=== PATIENT | female | born 1960 | race Caucasian/White ===

== ENCOUNTER 2017-10-18 21:41 | Emergency (ER) | payer SELFPAY ==
[~2017-10-18] VITALS: Ht 160 cm; Wt 84.4 kg
[2017-10-18 22:48] LABS: BASOPHILS # (AUTO) 0.1 (0.0-0.1); BASOPHILS % 0.5 % (0.0-1.0); EOSINOPHILS # (AUTO) 0.1 (0.0-0.4); EOSINOPHILS % 0.9 % (0.0-6.0); HEMATOCRIT 40.3 % (34.2-44.1); HEMOGLOBIN 13.2 g/dL (12.0-16.0); LYMPHOCYTES # (AUTO) 2.4 (1.0-3.2); LYMPHOCYTES % 17.7 % (18.0-39.1); MEAN CORPUSCULAR HEMOGLOBIN 30.1 pg (28-32); MEAN CORPUSCULAR HGB CONC 32.8 g/dL (31-35); MEAN CORPUSCULAR VOLUME 91.8 fL (81-99); MONOCYTES # (AUTO) 0.6 (0.2-0.8); MONOCYTES % 4.3 % (4.4-11.3); NEUTROPHILS # (AUTO) 10.2 (2.1-6.9); NEUTROPHILS % 76.2 % (38.7-80.0); PLATELET COUNT 260 x10e3/uL (140-360); RED BLOOD COUNT 4.39 x10e6/uL (3.6-5.1); RED CELL DISTRIBUTION WIDTH 13.1 % (11.7-14.4)
[2017-10-18 22:52] LABS: BILIRUBIN,URINE NEGATIVE (NEGATIVE); CLARITY,URINE CLEAR (CLEAR); COLOR,URINE YELLOW (YELLOW); KETONES,URINE NEGATIVE (NEGATIVE); LEUKOCYTE ESTERASE ,URINE NEGATIVE (NEGATIVE); NITRITE,URINE NEGATIVE (NEGATIVE); PROTEIN,URINE DIPSTICK NEGATIVE (NEGATIVE); URINE UROBILINOGEN 0.2 mg/dL (0.2 - 1)
[2017-10-18 23:10] LABS: BACTERIA,URINE FEW /HPF; EPITHELIAL CELLS,URINE FEW /LPF; WBC,URINE (MAN) 0-5 /HPF (0-5)
[2017-10-18 23:11] LABS: ALANINE AMINOTRANSFERASE 10 IU/L (0-55); ALBUMIN 3.7 g/dL (3.5-5.0); ALBUMIN/GLOBULIN RATIO 0.9 (0.8-2.0); ALKALINE PHOSPHATASE 81 IU/L (40-150); BLOOD UREA NITROGEN 10 mg/dL (7-26); BUN/CREATININE RATIO 12 (6-25); CALCIUM 9.4 mg/dL (8.4-10.2); CARBON DIOXIDE 25 mmol/L (22-29); CHLORIDE 101 mmol/L (98-107); CREATININE, SERUM 0.82 mg/dL (0.57-1.11); EST GLOMERULAR FILTRATION RATE > 60 ML/MIN (60-); GLUCOSE 152 mg/dL (74-118); SODIUM 135 mmol/L (136-145)
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
[2017-10-19 00:42] VITALS: BP 133/65
[2017-10-19] MEDS ORDERED: IOPAMIDOL 370 MG/ML 200 ML INFUS..BTL INJ ONE (02:51)
[2017-10-19] MEDS ORDERED: SODIUM CHLORIDE 0.9% 50ML 50 ML ONE (02:51)
== END 2017-10-19 01:00 | disposition home or self-care (01) ==
LOC: ER 21:41
DX: S00.83XA Contusion of other part of head, initial encounter (principal); S30.1XXA Contusion of abdominal wall, initial encounter; S60.212A Contusion of left wrist, initial encounter; S60.211A Contusion of right wrist, initial encounter; S60.222A Contusion of left hand, initial encounter; S60.221A Contusion of right hand, initial encounter; S70.12XA Contusion of left thigh, initial encounter; S70.11XA Contusion of right thigh, initial encounter; S60.812A Abrasion of left wrist, initial encounter; S60.811A Abrasion of right wrist, initial encounter; S60.512A Abrasion of left hand, initial encounter; S60.511A Abrasion of right hand, initial encounter; V43.52XA Car driver injured in collision with other type car in traffic accident, initial encounter; Y92.488 Other paved roadways as the place of occurrence of the external cause; G89.29 Other chronic pain; Z85.41 Personal history of malignant neoplasm of cervix uteri
CPT/HCPCS: 36415; 70450; 71010; 72125; 73110 ×2; 73130 ×2; 74177; 80053; 81001; 85025; 93005; 99284; Q9967

== ENCOUNTER 2024-12-20 17:41 | Inpatient (IN) | payer MEDICAID, OTHER ==
[~2024-12-20] VITALS: Ht 157.5 cm; Wt 70.3 kg
[2024-12-20] MEDS: DILTIAZEM HCL 5 MG/ML 5 ML VIAL IV STA ×2 (18:46→19:33)
[2024-12-20 18:54] VITALS: TEMP 98.6
[2024-12-20] MEDS ORDERED: AMIODARONE HCL 100 ML IV ONE (18:58)
[2024-12-20 19:03] LABS: BASOPHILS % 0.2 % (0.0-1.0); EOSINOPHILS % 0.2 % (0.0-6.0); HEMATOCRIT 37.6 % (34.2-44.1); LYMPHOCYTES # (AUTO) 0.4 (1.0-3.2); LYMPHOCYTES % 3.5 % (18.0-39.1); MEAN CORPUSCULAR HEMOGLOBIN 30.5 pg (28-32); MEAN CORPUSCULAR HGB CONC 31.9 g/dL (31-35); MEAN CORPUSCULAR VOLUME 95.7 fL (81-99); MONOCYTES # (AUTO) 0.2 (0.2-0.8); MONOCYTES % 1.7 % (4.4-11.3); NEUTROPHILS # (AUTO) 11.7 (2.1-6.9); PLATELET COUNT 340 x10e3/uL (140-360); RED BLOOD COUNT 3.93 x10e6/uL (3.6-5.1); WHITE BLOOD COUNT 12.45 x10e3/uL (4.8-10.8)
[2024-12-20 19:23] LABS: ALBUMIN 2.9 g/dL (3.5-5.0); ALBUMIN/GLOBULIN RATIO 0.7 (0.8-2.0); ANION GAP 17.4 mmol/L (8-16); BILIRUBIN,TOTAL 0.5 mg/dL (0.2-1.2); CREATININE, SERUM 0.71 mg/dL (0.57-1.11); POTASSIUM 4.4 mmol/L (3.5-5.1); TOTAL PROTEIN 7.1 g/dL (6.5-8.1)
[2024-12-20 19:28] LABS: CORONAVIRUS COVID-19 AG NEGATIVE (NEGATIVE); INFLUENZA A AG NEGATIVE (NEGATIVE); INFLUENZA B AG NEGATIVE (NEGATIVE)
[2024-12-20] MEDS: AMIODARONE HCL 150 MG/100 ML BAG IV ONE (19:28)
[2024-12-20] MEDS: IBUPROFEN 400 MG TAB PO ONE (19:28)
[2024-12-20 19:30] LABS: B-TYPE NATRIURETIC PEPTIDE2 673.9 pg/mL (0-100)
[2024-12-20] MEDS ORDERED: IOPAMIDOL 370 MG/ML 100 ML INFUS..BTL INJ ONE (19:33)
[2024-12-20] MEDS: AMIODARONE 900MG 500 ML IV SCH (19:47)
[2024-12-20 20:30] VITALS: PULSE 152; RESP 18; O2SAT 94
[2024-12-20] MEDS: APIXABAN 5 MG TABLET PO SCH (21:37)
[2024-12-20] MEDS: DILTIAZEM HCL 60 MG TAB PO SCH (21:37)
[2024-12-20] MEDS: GABAPENTIN 300 MG CAP PO SCH (21:37)
[2024-12-20] MEDS: FUROSEMIDE INJ 10 MG/ML 4 ML VIAL IV ONE (21:38)
[2024-12-20 22:30] LABS: BILIRUBIN,URINE NEGATIVE (NEGATIVE); CLARITY,URINE CLEAR (CLEAR); COLOR,URINE YELLOW (YELLOW); GLUCOSE, URINE NEGATIVE (NEGATIVE); KETONES,URINE NEGATIVE (NEGATIVE); LEUKOCYTE ESTERASE ,URINE TRACE (NEGATIVE); NITRITE,URINE NEGATIVE (NEGATIVE); PH,URINE 5.5 (5 - 7); PROTEIN,URINE DIPSTICK NEGATIVE (NEGATIVE); URINE UROBILINOGEN 0.2 mg/dL (0.2 - 1)
[2024-12-20] MEDS ORDERED: SODIUM CHLORIDE FLUSH 10 ML SYR INJ PRN (22:30)
[2024-12-20 22:48] LABS: BACTERIA,URINE MANY /HPF; EPITHELIAL CELLS,URINE MODERATE /LPF; RBC,URINE 0-5 /HPF (0-5)
[2024-12-20 23:00] VITALS: PULSE 152; RESP 21
[2024-12-20 23:56] VITALS: BP 115/81; PULSE 153; RESP 20; TEMP 98.3; O2SAT 92
[2024-12-21] VITALS (39 sets, daily range): BP systolic 103–135; BP diastolic 66–95; PULSE 42–152; RESP 13–34; TEMP 97.8–98.6; O2SAT 89–99
[2024-12-21] MEDS: Morphine 2mg Syringe 2 MG/ML SYR IV ONE (00:35)
[2024-12-21] MEDS: METHYLPREDNISOLONE SOD SUCC 40 MG/ML VIAL 1ML IV SCH (00:36)
[2024-12-21] MEDS: ONDANSETRON HCL INJ 2MG/ML 2ML 2 MG/ML VIAL IV STA (00:36)
[2024-12-21] MEDS: LEVALBUTEROL HCL SOLN NEBU 0.63 MG/3 ML NEB INH SCH (01:36)
[2024-12-21 07:58] LABS: TROPONIN I 0.003 ng/mL (0-0.300)
[2024-12-21] MEDS: FUROSEMIDE INJ 10 MG/ML 4 ML VIAL IV SCH (08:11)
[2024-12-21] MEDS: METOPROLOL TARTRATE 25 MG TAB PO SCH (10:19)
[2024-12-21] MEDS: HYDROCODONE/APAP 10MG-325MG TAB PO PRN (10:55)
[2024-12-21] MEDS: IBUPROFEN 400 MG TAB PO ONE (15:37)
[2024-12-21] MEDS: AMIODARONE 900MG 500 ML IV SCH (16:26)
[2024-12-21] MEDS ORDERED: IBUPROFEN600 MG PO (17:23)
[2024-12-21] MEDS ORDERED: HYDROCODON-ACE1 EAC9 (17:23)
[2024-12-21] MEDS ORDERED: ALBUTEROL1.25 MG/3 NEB (17:23)
[2024-12-21] MEDS ORDERED: NEURONTIN300 MG PO (17:23)
[2024-12-21] MEDS ORDERED: BREZTRI AEROS10.7 GM (17:23)
[2024-12-21] MEDS ORDERED: TIZANIDINE HCL4 MG PO (17:23)
[2024-12-22] VITALS (28 sets, daily range): BP systolic 101–141; BP diastolic 66–103; PULSE 50–138; RESP 12–23; TEMP 98.2–98.6; O2SAT 91–100
[2024-12-22 06:18] LABS: BASOPHILS % 0.2 % (0.0-1.0); EOSINOPHILS % 0.2 % (0.0-6.0); HEMATOCRIT 39.4 % (34.2-44.1); HEMOGLOBIN 12.7 g/dL (12.0-16.0); LYMPHOCYTES # (AUTO) 1.2 (1.0-3.2); LYMPHOCYTES % 10.6 % (18.0-39.1); MEAN CORPUSCULAR HEMOGLOBIN 31.3 pg (28-32); MEAN CORPUSCULAR HGB CONC 32.2 g/dL (31-35); MONOCYTES # (AUTO) 0.6 (0.2-0.8); MONOCYTES % 5.7 % (4.4-11.3); NEUTROPHILS # (AUTO) 9.3 (2.1-6.9); NEUTROPHILS % 82.7 % (38.7-80.0); PLATELET COUNT 328 x10e3/uL (140-360); RED BLOOD COUNT 4.06 x10e6/uL (3.6-5.1); RED CELL DISTRIBUTION WIDTH 13.2 % (11.7-14.4); WHITE BLOOD COUNT 11.27 x10e3/uL (4.8-10.8)
[2024-12-22 06:52] LABS: ALBUMIN 2.7 g/dL (3.5-5.0); ALBUMIN/GLOBULIN RATIO 0.7 (0.8-2.0); ANION GAP 15.4 mmol/L (8-16); BILIRUBIN,TOTAL 0.3 mg/dL (0.2-1.2); CALCIUM 8.8 mg/dL (8.4-10.2); CREATININE, SERUM 1.15 mg/dL (0.57-1.11); POTASSIUM 4.4 mmol/L (3.5-5.1); TOTAL PROTEIN 6.6 g/dL (6.5-8.1)
[2024-12-22 07:20] LABS: PHOSPHORUS 3.9 MG/DL (2.3-4.7)
[2024-12-22 07:31] LABS: TROPONIN I 0.021 ng/mL (0-0.300)
[2024-12-22] MEDS: LEVALBUTEROL HCL SOLN NEBU 0.63 MG/3 ML NEB INH PRN (08:10)
[2024-12-22] MEDS: FUROSEMIDE INJ 10 MG/ML 4 ML VIAL IV SCH (08:14)
[2024-12-22] MEDS: HYDROCODONE/APAP 10MG-325MG TAB PO PRN (10:10)
[2024-12-22] MEDS ORDERED: GUAIFENESIN/CODEINE 5 ML LIQD PO PRN (16:00)
[2024-12-22] MEDS ORDERED: BENZONATATE 100 MG CAP PO PRN (16:15)
[2024-12-22] MEDS: GUAIFENESIN/CODEINE 5 ML LIQD PO PRN (16:21)
[2024-12-22] MEDS: BUDESONIDE/FORMOTEROL 160/4.5MCG INHALER INH SCH (19:00)
[2024-12-22] MEDS: METHYLPREDNISOLONE SOD SUCC 40 MG/ML VIAL 1ML IV SCH (20:18)
[2024-12-23] VITALS (25 sets, daily range): BP systolic 55–148; BP diastolic 36–114; PULSE 44–137; RESP 11–24; TEMP 98.1–98.9; O2SAT 91–100
[2024-12-23 06:10] LABS: BASOPHILS % 0.1 % (0.0-1.0); EOSINOPHILS # (AUTO) 0.1 (0.0-0.4); EOSINOPHILS % 1.1 % (0.0-6.0); HEMATOCRIT 40.2 % (34.2-44.1); HEMOGLOBIN 12.4 g/dL (12.0-16.0); LYMPHOCYTES # (AUTO) 0.9 (1.0-3.2); LYMPHOCYTES % 8.9 % (18.0-39.1); MEAN CORPUSCULAR HEMOGLOBIN 30.5 pg (28-32); MEAN CORPUSCULAR HGB CONC 30.8 g/dL (31-35); MONOCYTES # (AUTO) 0.7 (0.2-0.8); MONOCYTES % 6.9 % (4.4-11.3); NEUTROPHILS # (AUTO) 8.3 (2.1-6.9); NEUTROPHILS % 82.3 % (38.7-80.0); PLATELET COUNT 356 x10e3/uL (140-360); RED BLOOD COUNT 4.06 x10e6/uL (3.6-5.1); RED CELL DISTRIBUTION WIDTH 13.1 % (11.7-14.4); WHITE BLOOD COUNT 10.04 x10e3/uL (4.8-10.8)
[2024-12-23 06:34] LABS: ALBUMIN/GLOBULIN RATIO 0.9 (0.8-2.0); ANION GAP 16.4 mmol/L (8-16); BILIRUBIN,TOTAL 0.4 mg/dL (0.2-1.2); CALCIUM 8.9 mg/dL (8.4-10.2); CREATININE, SERUM 1.03 mg/dL (0.57-1.11); POTASSIUM 4.4 mmol/L (3.5-5.1); TOTAL PROTEIN 6.5 g/dL (6.5-8.1)
[2024-12-23] MEDS: FAMOTIDINE 20 MG TAB PO SCH (17:29)
[2024-12-24] VITALS (40 sets, daily range): BP systolic 108–144; BP diastolic 76–100; PULSE 35–127; RESP 10–29; TEMP 96.4–98.1; O2SAT 57–100
[2024-12-24 07:08] LABS: ALBUMIN 2.9 g/dL (3.5-5.0); ANION GAP 15.3 mmol/L (8-16); BILIRUBIN,TOTAL 0.6 mg/dL (0.2-1.2); CALCIUM 8.8 mg/dL (8.4-10.2); CREATININE, SERUM 0.85 mg/dL (0.57-1.11); POTASSIUM 4.3 mmol/L (3.5-5.1); TOTAL PROTEIN 5.9 g/dL (6.5-8.1)
[2024-12-24 08:04] LABS: BASOPHILS % 0.1 % (0.0-1.0); EOSINOPHILS % 0.5 % (0.0-6.0); HEMATOCRIT 38.2 % (34.2-44.1); HEMOGLOBIN 12.5 g/dL (12.0-16.0); LYMPHOCYTES # (AUTO) 0.7 (1.0-3.2); LYMPHOCYTES % 9.2 % (18.0-39.1); MEAN CORPUSCULAR HEMOGLOBIN 31.3 pg (28-32); MEAN CORPUSCULAR HGB CONC 32.7 g/dL (31-35); MEAN CORPUSCULAR VOLUME 95.5 fL (81-99); MONOCYTES # (AUTO) 0.6 (0.2-0.8); MONOCYTES % 7.8 % (4.4-11.3); NEUTROPHILS # (AUTO) 6.6 (2.1-6.9); NEUTROPHILS % 81.7 % (38.7-80.0); PLATELET COUNT 336 x10e3/uL (140-360); RED CELL DISTRIBUTION WIDTH 12.8 % (11.7-14.4); WHITE BLOOD COUNT 8.06 x10e3/uL (4.8-10.8)
[2024-12-24] MEDS: METHYLPREDNISOLONE SOD SUCC 40 MG/ML VIAL 1ML IV SCH (08:10)
[2024-12-24] MEDS ORDERED: ZOLPIDEM TARTRATE 5 MG TAB PO PRN (08:15)
[2024-12-24] MEDS: HYDROCODONE/APAP 10MG-325MG TAB PO PRN (10:42)
[2024-12-24] MEDS ORDERED: LEVALBUTEROL 45 MCG IH PRN (12:30)
[2024-12-25] VITALS (25 sets, daily range): BP systolic 99–154; BP diastolic 70–94; PULSE 48–142; RESP 10–21; TEMP 97.6–98.4; O2SAT 71–100
[2024-12-25 07:01] LABS: BASOPHILS % 0.1 % (0.0-1.0); EOSINOPHILS % 0.1 % (0.0-6.0); HEMATOCRIT 43.4 % (34.2-44.1); HEMOGLOBIN 13.6 g/dL (12.0-16.0); LYMPHOCYTES % 7.3 % (18.0-39.1); MEAN CORPUSCULAR HEMOGLOBIN 30.8 pg (28-32); MEAN CORPUSCULAR HGB CONC 31.3 g/dL (31-35); MEAN CORPUSCULAR VOLUME 98.2 fL (81-99); MONOCYTES # (AUTO) 1.1 (0.2-0.8); MONOCYTES % 8.2 % (4.4-11.3); NEUTROPHILS # (AUTO) 10.8 (2.1-6.9); NEUTROPHILS % 83.1 % (38.7-80.0); PLATELET COUNT 317 x10e3/uL (140-360); RED BLOOD COUNT 4.42 x10e6/uL (3.6-5.1); RED CELL DISTRIBUTION WIDTH 12.9 % (11.7-14.4); WHITE BLOOD COUNT 12.95 x10e3/uL (4.8-10.8)
[2024-12-25 07:26] LABS: ANION GAP 16.9 mmol/L (8-16); CALCIUM 9.5 mg/dL (8.4-10.2); CREATININE, SERUM 0.85 mg/dL (0.57-1.11); POTASSIUM 3.9 mmol/L (3.5-5.1)
[2024-12-25] MEDS: AMIODARONE HCL 200 MG TAB PO SCH (19:42)
[2024-12-26] VITALS (23 sets, daily range): BP systolic 98–180; BP diastolic 52–158; PULSE 70–88; RESP 10–22; TEMP 97.5–99.1; O2SAT 91–100
[2024-12-26 07:20] LABS: BASOPHILS % 0.1 % (0.0-1.0); EOSINOPHILS % 0.1 % (0.0-6.0); HEMATOCRIT 43.5 % (34.2-44.1); HEMOGLOBIN 13.9 g/dL (12.0-16.0); LYMPHOCYTES # (AUTO) 1.1 (1.0-3.2); LYMPHOCYTES % 8.5 % (18.0-39.1); MEAN CORPUSCULAR HEMOGLOBIN 30.5 pg (28-32); MEAN CORPUSCULAR VOLUME 95.6 fL (81-99); MONOCYTES # (AUTO) 0.9 (0.2-0.8); MONOCYTES % 6.7 % (4.4-11.3); NEUTROPHILS # (AUTO) 10.9 (2.1-6.9); NEUTROPHILS % 83.4 % (38.7-80.0); PLATELET COUNT 350 x10e3/uL (140-360); RED BLOOD COUNT 4.55 x10e6/uL (3.6-5.1); RED CELL DISTRIBUTION WIDTH 13.2 % (11.7-14.4); WHITE BLOOD COUNT 13.04 x10e3/uL (4.8-10.8)
[2024-12-26 07:39] LABS: ANION GAP 16.1 mmol/L (8-16); CALCIUM 8.8 mg/dL (8.4-10.2); CREATININE, SERUM 0.81 mg/dL (0.57-1.11); MAGNESIUM 2.3 MG/DL (1.3-2.1); POTASSIUM 4.1 mmol/L (3.5-5.1)
[2024-12-26] MEDS: PREDNISONE 10 MG TAB PO SCH (08:38)
[2024-12-27] VITALS (14 sets, daily range): BP systolic 116–144; BP diastolic 73–98; PULSE 71–123; RESP 10–34; TEMP 98.2–99; O2SAT 78–100
[2024-12-27 07:02] LABS: BASOPHILS % 0.1 % (0.0-1.0); EOSINOPHILS % 0.1 % (0.0-6.0); HEMATOCRIT 41.7 % (34.2-44.1); HEMOGLOBIN 13.3 g/dL (12.0-16.0); LYMPHOCYTES # (AUTO) 1.9 (1.0-3.2); LYMPHOCYTES % 12.6 % (18.0-39.1); MEAN CORPUSCULAR HGB CONC 31.9 g/dL (31-35); MEAN CORPUSCULAR VOLUME 97.2 fL (81-99); MONOCYTES # (AUTO) 1.1 (0.2-0.8); MONOCYTES % 7.4 % (4.4-11.3); NEUTROPHILS # (AUTO) 11.7 (2.1-6.9); NEUTROPHILS % 78.7 % (38.7-80.0); PLATELET COUNT 294 x10e3/uL (140-360); RED BLOOD COUNT 4.29 x10e6/uL (3.6-5.1); RED CELL DISTRIBUTION WIDTH 13.3 % (11.7-14.4); WHITE BLOOD COUNT 14.86 x10e3/uL (4.8-10.8)
[2024-12-27 07:28] LABS: ANION GAP 13.8 mmol/L (8-16); CALCIUM 8.5 mg/dL (8.4-10.2); CREATININE, SERUM 0.72 mg/dL (0.57-1.11); POTASSIUM 3.8 mmol/L (3.5-5.1)
[2024-12-27] MEDS ORDERED: DILTIAZEM HCL60 MG PO (17:06)
[2024-12-27] MEDS ORDERED: LOPRESSOR25 MG PO (17:06)
[2024-12-27] MEDS ORDERED: AMIODARONE HCL200 MG PO (17:06)
[2024-12-27] MEDS ORDERED: FAMOTIDINE20 MG PO (17:06)
[2024-12-27] MEDS ORDERED: ELIQUIS5 MG PO (17:06)
[2024-12-27] MEDS ORDERED: LASIX40 MG PO (18:59)
[2024-12-27] MEDS: SACUBITRIL/VALSARTAN 24MG/26MG 1 EA TAB PO SCH (21:00)
[2024-12-28] VITALS (8 sets, daily range): BP systolic 108–162; BP diastolic 65–106; PULSE 47–76; RESP 10–23; TEMP 98.2–98.4; O2SAT 92–100
[2024-12-28] MEDS ORDERED: ENTRESTO 24 MG1 EACH PO (12:40)
== END 2024-12-28 09:21 | disposition home or self-care (01) | DRG 308 ==
LOC: ER 17:59 → ERHOLD 22:21 → ICU 23:42
PROVIDERS: ADMIT Internal Medicine; ATTEND Internal Medicine
DX: I48.92 Unspecified atrial flutter (principal); I50.23 Acute on chronic systolic (congestive) heart failure; J96.21 Acute and chronic respiratory failure with hypoxia; J44.1 Chronic obstructive pulmonary disease with (acute) exacerbation; J90 Pleural effusion, not elsewhere classified; I11.0 Hypertensive heart disease with heart failure; F17.200 Nicotine dependence, unspecified, uncomplicated; Z99.81 Dependence on supplemental oxygen; I27.20 Pulmonary hypertension, unspecified; B19.20 Unspecified viral hepatitis C without hepatic coma; I48.91 Unspecified atrial fibrillation; Z79.01 Long term (current) use of anticoagulants; R00.0 Tachycardia, unspecified; R53.81 Other malaise; I08.1 Rheumatic disorders of both mitral and tricuspid valves; M06.9 Rheumatoid arthritis, unspecified; M54.50 Low back pain, unspecified; G89.29 Other chronic pain; G57.92 Unspecified mononeuropathy of left lower limb; Z71.3 Dietary counseling and surveillance; Z68.28 Body mass index [BMI] 28.0-28.9, adult; Z11.52 Encounter for screening for COVID-19; Z87.01 Personal history of pneumonia (recurrent); Z85.41 Personal history of malignant neoplasm of cervix uteri; Z79.899 Other long term (current) drug therapy
CPT/HCPCS: 36415; 71045; 71260; 80048; 80053; 81001; 82550; 83036; 83605; 83735; 83880; 84100; 84443; 84484; 85025; 87040; 87522; 93005; 93306; 94640; 94664; 94799; 99252; 99285; J0696; J1940; J2270; J2405; J2919; J7512; Q9967

== ENCOUNTER 2025-01-09 12:12 | Inpatient (IN) | payer MEDICAID ==
[~2025-01-09] VITALS: Ht 157.5 cm; Wt 64.4 kg
[~2025-01-09 12:12] MED LIST: ALBUTEROL1.25 MG/3 NEB; AMIODARONE HCL200 MG PO; BREZTRI AEROS10.7 GM; DILTIAZEM HCL60 MG PO; ELIQUIS5 MG PO; ENTRESTO 24 MG1 EACH PO; FAMOTIDINE20 MG PO; HYDROCODON-ACE1 EAC9; IBUPROFEN600 MG PO; LASIX40 MG PO; LOPRESSOR25 MG PO; NEURONTIN300 MG PO; TIZANIDINE HCL4 MG PO
[2025-01-09 12:26] VITALS: TEMP 98.2
[2025-01-09 12:51] LABS: BASOPHILS % 0.2 % (0.0-1.0); EOSINOPHILS % 0.1 % (0.0-6.0); HEMATOCRIT 41.6 % (34.2-44.1); HEMOGLOBIN 13.1 g/dL (12.0-16.0); LYMPHOCYTES # (AUTO) 0.7 (1.0-3.2); LYMPHOCYTES % 5.9 % (18.0-39.1); MEAN CORPUSCULAR HEMOGLOBIN 30.5 pg (28-32); MEAN CORPUSCULAR HGB CONC 31.5 g/dL (31-35); MONOCYTES # (AUTO) 0.6 (0.2-0.8); MONOCYTES % 4.7 % (4.4-11.3); NEUTROPHILS # (AUTO) 11.1 (2.1-6.9); NEUTROPHILS % 88.5 % (38.7-80.0); PLATELET COUNT 309 x10e3/uL (140-360); RED BLOOD COUNT 4.29 x10e6/uL (3.6-5.1); RED CELL DISTRIBUTION WIDTH 14.3 % (11.7-14.4)
[2025-01-09] MEDS: SODIUM CHLORIDE 0.9% 1000ML 1,000 ML IV STA (12:53)
[2025-01-09 13:17] LABS: ALANINE AMINOTRANSFERASE 11 IU/L (0-55); ALBUMIN 2.7 g/dL (3.5-5.0); ALBUMIN/GLOBULIN RATIO 0.8 (0.8-2.0); ALKALINE PHOSPHATASE 65 IU/L (40-150); ANION GAP 13.3 mmol/L (8-16); BILIRUBIN,TOTAL 0.9 mg/dL (0.2-1.2); BLOOD UREA NITROGEN 8 mg/dL (7-26); BUN/CREATININE RATIO 11 (6-25); CARBON DIOXIDE 29 mmol/L (22-29); CHLORIDE 98 mmol/L (98-107); CREATINE KINASE 35 IU/L (29-168); CREATININE, SERUM 0.73 mg/dL (0.57-1.11); EST GLOMERULAR FILTRATION RATE 92 ML/MIN (>=60); GLUCOSE 97 mg/dL (74-118); POTASSIUM 4.3 mmol/L (3.5-5.1); SODIUM 136 mmol/L (136-145); TOTAL PROTEIN 6.1 g/dL (6.5-8.1)
[2025-01-09] MEDS: DIGOXIN INJ 0.25 MG/ML 2 ML AMP IV STA (13:21)
[2025-01-09 13:26] LABS: TROPONIN I < 0.001 ng/mL (0-0.300)
[2025-01-09] MEDS: METOPROLOL TARTRATE INJ 1 MG/ML VIAL IV STA ×2 (13:55→17:22)
[2025-01-09] MEDS ORDERED: Morphine 2mg Syringe 2 MG/ML SYR IV PRN (14:45)
[2025-01-09 15:13] VITALS: PULSE 129; RESP 22; O2SAT 96
[2025-01-09] MEDS: FUROSEMIDE INJ 10 MG/ML 4 ML VIAL IV ONE (16:54)
[2025-01-09] MEDS: AMIODARONE HCL 200 MG TAB PO SCH (16:54)
[2025-01-09] MEDS: FAMOTIDINE 20 MG TAB PO SCH (16:54)
[2025-01-09] MEDS: APIXABAN 5 MG TABLET PO SCH (16:59)
[2025-01-09] MEDS: HYDROCODONE/APAP 10MG-325MG TAB PO PRN (16:59)
[2025-01-09] MEDS: ACETAMINOPHEN 325 MG TAB PO STA (17:44)
[2025-01-09] MEDS: DILTIAZEM HCL 5 MG/ML 5 ML VIAL IV STA ×2 (17:55→19:40)
[2025-01-09] MEDS: BUDESONIDE/FORMOTEROL 160/4.5MCG INHALER INH SCH (19:00)
[2025-01-09 20:23] VITALS: PULSE 131; RESP 22; O2SAT 100
[2025-01-09] MEDS: BUDESONIDE/FORMOTEROL 160/4.5MCG INHALER INH STA (21:11)
[2025-01-09 21:46] VITALS: PULSE 133; RESP 20
[2025-01-09] MEDS: SODIUM CHLORIDE 0.9% 1000ML 500 ML IV ONE (22:14)
[2025-01-09] MEDS ORDERED: AMIODARONE 900MG 500 ML IV ONE (22:53)
[2025-01-09 23:00] VITALS: BP 107/77; PULSE 134; RESP 24; TEMP 97.9; O2SAT 97
[2025-01-09] MEDS: AMIODARONE HCL 150 MG/100 ML BAG IV ONE (23:02)
[2025-01-09] MEDS: AMIODARONE 900MG 900 MG in Premix Bag 1 BAG IV ONE (23:30)
[2025-01-10] VITALS (39 sets, daily range): BP systolic 94–143; BP diastolic 56–106; PULSE 37–145; RESP 14–34; TEMP 97.7–98.2; O2SAT 80–99
[2025-01-10 07:50] LABS: BASOPHILS % 0.2 % (0.0-1.0); EOSINOPHILS # (AUTO) 0.1 (0.0-0.4); EOSINOPHILS % 0.9 % (0.0-6.0); HEMATOCRIT 40.7 % (34.2-44.1); HEMOGLOBIN 12.8 g/dL (12.0-16.0); LYMPHOCYTES # (AUTO) 0.8 (1.0-3.2); LYMPHOCYTES % 8.8 % (18.0-39.1); MEAN CORPUSCULAR HEMOGLOBIN 30.6 pg (28-32); MEAN CORPUSCULAR HGB CONC 31.4 g/dL (31-35); MEAN CORPUSCULAR VOLUME 97.4 fL (81-99); MONOCYTES # (AUTO) 0.7 (0.2-0.8); MONOCYTES % 7.9 % (4.4-11.3); NEUTROPHILS # (AUTO) 7.3 (2.1-6.9); NEUTROPHILS % 81.5 % (38.7-80.0); PLATELET COUNT 274 x10e3/uL (140-360); RED BLOOD COUNT 4.18 x10e6/uL (3.6-5.1); RED CELL DISTRIBUTION WIDTH 14.3 % (11.7-14.4); WHITE BLOOD COUNT 8.97 x10e3/uL (4.8-10.8)
[2025-01-10 08:13] LABS: ALBUMIN 2.4 g/dL (3.5-5.0); ALBUMIN/GLOBULIN RATIO 0.8 (0.8-2.0); ANION GAP 13.7 mmol/L (8-16); BILIRUBIN,TOTAL 1.1 mg/dL (0.2-1.2); CALCIUM 8.3 mg/dL (8.4-10.2); CREATININE, SERUM 0.68 mg/dL (0.57-1.11); POTASSIUM 3.7 mmol/L (3.5-5.1); TOTAL PROTEIN 5.6 g/dL (6.5-8.1)
[2025-01-10 08:37] LABS: TROPONIN I 0.003 ng/mL (0-0.300)
[2025-01-10] MEDS ORDERED: FUROSEMIDE 40 MG TAB PO SCH (09:00)
[2025-01-10] MEDS: GUAIFENESIN/CODEINE 5 ML LIQD PO PRN (09:16)
[2025-01-10] MEDS: FUROSEMIDE INJ 10 MG/ML 4 ML VIAL IV ONE (10:42)
[2025-01-10] MEDS: Doxycycline IV 100 MG in SODIUM CHLORIDE 0.9% 100 ML IV SCH (10:42)
[2025-01-10] MEDS: ALBUTEROL SULF 0.083% NEB SOLN 3 ML NEB NEB PRN (13:43)
[2025-01-10] MEDS: HYDROCODONE/APAP 10MG-325MG TAB PO PRN (16:22)
[2025-01-10] MEDS: AMIODARONE 900MG 500 ML IV SCH (21:07)
[2025-01-10] MEDS: METOPROLOL TARTRATE 25 MG TAB PO SCH (21:08)
[2025-01-10] MEDS: SACUBITRIL/VALSARTAN 24MG/26MG 1 EA TAB PO SCH (21:35)
[2025-01-11] VITALS (28 sets, daily range): BP systolic 99–147; BP diastolic 64–109; PULSE 45–137; RESP 13–30; TEMP 98–98.7; O2SAT 90–100
[2025-01-11 07:16] LABS: BASOPHILS % 0.3 % (0.0-1.0); EOSINOPHILS # (AUTO) 0.1 (0.0-0.4); HEMATOCRIT 38.9 % (34.2-44.1); HEMOGLOBIN 12.3 g/dL (12.0-16.0); LYMPHOCYTES # (AUTO) 1.6 (1.0-3.2); LYMPHOCYTES % 17.6 % (18.0-39.1); MEAN CORPUSCULAR HEMOGLOBIN 29.9 pg (28-32); MEAN CORPUSCULAR HGB CONC 31.6 g/dL (31-35); MEAN CORPUSCULAR VOLUME 94.6 fL (81-99); MONOCYTES # (AUTO) 0.9 (0.2-0.8); MONOCYTES % 10.1 % (4.4-11.3); NEUTROPHILS # (AUTO) 6.3 (2.1-6.9); NEUTROPHILS % 70.3 % (38.7-80.0); PLATELET COUNT 322 x10e3/uL (140-360); RED BLOOD COUNT 4.11 x10e6/uL (3.6-5.1); RED CELL DISTRIBUTION WIDTH 14.4 % (11.7-14.4); WHITE BLOOD COUNT 8.99 x10e3/uL (4.8-10.8)
[2025-01-11 07:28] LABS: ALBUMIN 2.5 g/dL (3.5-5.0); ALBUMIN/GLOBULIN RATIO 0.6 (0.8-2.0); ANION GAP 15.4 mmol/L (8-16); BILIRUBIN,TOTAL 0.8 mg/dL (0.2-1.2); CALCIUM 8.6 mg/dL (8.4-10.2); CREATININE, SERUM 0.67 mg/dL (0.57-1.11); TOTAL PROTEIN 6.4 g/dL (6.5-8.1)
[2025-01-11 07:29] LABS: POTASSIUM 5.4 mmol/L (3.5-5.1)
[2025-01-11] MEDS: METOPROLOL SUCCINATE 50 MG TAB XL PO SCH ×2 (09:19→20:16)
[2025-01-11] MEDS: DIGOXIN 0.25 MG TAB PO ONE (12:25)
[2025-01-11] MEDS: ONDANSETRON HCL INJ 2MG/ML 2ML 2 MG/ML VIAL IV PRN (14:12)
[2025-01-12] VITALS (25 sets, daily range): BP systolic 93–140; BP diastolic 58–124; PULSE 67–136; RESP 13–30; TEMP 96.6–98.2; O2SAT 78–100
[2025-01-12 07:16] LABS: BASOPHILS % 0.4 % (0.0-1.0); EOSINOPHILS # (AUTO) 0.1 (0.0-0.4); EOSINOPHILS % 1.2 % (0.0-6.0); HEMATOCRIT 39.8 % (34.2-44.1); HEMOGLOBIN 12.7 g/dL (12.0-16.0); LYMPHOCYTES # (AUTO) 1.6 (1.0-3.2); LYMPHOCYTES % 15.1 % (18.0-39.1); MEAN CORPUSCULAR HEMOGLOBIN 30.4 pg (28-32); MEAN CORPUSCULAR HGB CONC 31.9 g/dL (31-35); MEAN CORPUSCULAR VOLUME 95.2 fL (81-99); MONOCYTES # (AUTO) 1.1 (0.2-0.8); MONOCYTES % 10.4 % (4.4-11.3); NEUTROPHILS # (AUTO) 7.4 (2.1-6.9); NEUTROPHILS % 72.3 % (38.7-80.0); PLATELET COUNT 378 x10e3/uL (140-360); RED BLOOD COUNT 4.18 x10e6/uL (3.6-5.1); RED CELL DISTRIBUTION WIDTH 14.3 % (11.7-14.4); WHITE BLOOD COUNT 10.24 x10e3/uL (4.8-10.8)
[2025-01-12 07:41] LABS: ALANINE AMINOTRANSFERASE 10 IU/L (0-55); ALBUMIN 2.5 g/dL (3.5-5.0); ALBUMIN/GLOBULIN RATIO 0.7 (0.8-2.0); ALKALINE PHOSPHATASE 58 IU/L (40-150); ANION GAP 14.1 mmol/L (8-16); BILIRUBIN,TOTAL 0.8 mg/dL (0.2-1.2); BLOOD UREA NITROGEN < 5 mg/dL (7-26); CALCIUM 8.9 mg/dL (8.4-10.2); CARBON DIOXIDE 31 mmol/L (22-29); CHLORIDE 95 mmol/L (98-107); CREATININE, SERUM 0.61 mg/dL (0.57-1.11); EST GLOMERULAR FILTRATION RATE 100 ML/MIN (>=60); GLUCOSE 98 mg/dL (74-118); POTASSIUM 4.1 mmol/L (3.5-5.1); SODIUM 136 mmol/L (136-145); TOTAL PROTEIN 5.9 g/dL (6.5-8.1)
[2025-01-12 07:44] LABS: BUN/CREATININE RATIO 8 (6-25)
[2025-01-12] MEDS: DIGOXIN 0.125 MG TAB PO SCH (08:30)
[2025-01-12] MEDS: MAGNESIUM SULFATE 2GM/50ML 50 ML IV ONE (10:20)
[2025-01-12] MEDS: FUROSEMIDE INJ 10 MG/ML 2 ML VIAL IV ONE (10:20)
[2025-01-12] MEDS: METOPROLOL SUCCINATE 50 MG TAB XL PO SCH (21:08)
[2025-01-13] VITALS (23 sets, daily range): BP systolic 87–135; BP diastolic 58–113; PULSE 60–100; RESP 12–24; TEMP 97.2–98.2; O2SAT 68–100
[2025-01-13 06:21] LABS: BASOPHILS % 0.4 % (0.0-1.0); EOSINOPHILS # (AUTO) 0.2 (0.0-0.4); EOSINOPHILS % 1.6 % (0.0-6.0); HEMATOCRIT 39.8 % (34.2-44.1); HEMOGLOBIN 12.2 g/dL (12.0-16.0); LYMPHOCYTES % 21.9 % (18.0-39.1); MEAN CORPUSCULAR HEMOGLOBIN 30.4 pg (28-32); MEAN CORPUSCULAR HGB CONC 30.7 g/dL (31-35); MEAN CORPUSCULAR VOLUME 99.3 fL (81-99); MONOCYTES # (AUTO) 1.1 (0.2-0.8); MONOCYTES % 11.7 % (4.4-11.3); NEUTROPHILS # (AUTO) 5.9 (2.1-6.9); PLATELET COUNT 344 x10e3/uL (140-360); RED BLOOD COUNT 4.01 x10e6/uL (3.6-5.1); RED CELL DISTRIBUTION WIDTH 14.2 % (11.7-14.4); WHITE BLOOD COUNT 9.28 x10e3/uL (4.8-10.8)
[2025-01-13 07:31] LABS: CALCIUM 9.2 mg/dL (8.4-10.2); CREATININE, SERUM 0.64 mg/dL (0.57-1.11); MAGNESIUM 1.8 MG/DL (1.3-2.1)
[2025-01-13] MEDS ORDERED: TOPROL XL50 MG PO (17:58)
[2025-01-14] VITALS (14 sets, daily range): BP systolic 107–136; BP diastolic 58–90; PULSE 68–81; RESP 12–20; TEMP 97.9–98.3; O2SAT 95–100
[2025-01-15 05:06] VITALS: BP 114/72; PULSE 65; RESP 18; TEMP 98; O2SAT 95
[2025-01-15 08:08] VITALS: BP 109/71; PULSE 68; RESP 19; TEMP 97.8; O2SAT 99
[2025-01-15 08:09] VITALS: BP 109/71; PULSE 68; RESP 19; TEMP 97.8; O2SAT 99
[2025-01-15 10:59] VITALS: PULSE 67; RESP 18; O2SAT 100
[2025-01-15 12:01] VITALS: BP 108/60; PULSE 68; RESP 20; TEMP 97.9; O2SAT 99
== END 2025-01-15 13:57 | disposition home or self-care (01) | DRG 291 ==
LOC: ER 12:16 → ERHOLD 14:44 → ICU 23:16 → MED/SURG 01-14 21:05
PROVIDERS: ADMIT Internal Medicine; ATTEND Internal Medicine
DX: I50.43 Acute on chronic combined systolic (congestive) and diastolic (congestive) heart failure (principal); J96.21 Acute and chronic respiratory failure with hypoxia; I48.92 Unspecified atrial flutter; J44.1 Chronic obstructive pulmonary disease with (acute) exacerbation; Z79.01 Long term (current) use of anticoagulants; Z99.81 Dependence on supplemental oxygen; M06.9 Rheumatoid arthritis, unspecified; M54.50 Low back pain, unspecified; B19.20 Unspecified viral hepatitis C without hepatic coma; I48.0 Paroxysmal atrial fibrillation; Z79.51 Long term (current) use of inhaled steroids; F17.200 Nicotine dependence, unspecified, uncomplicated
CPT/HCPCS: 36415; 36568; 71045; 80048; 80053; 80162; 82550; 83605; 83690; 83735; 83880; 84484; 85025; 87040; 87086; 87186; 87522; 93005; 94640; 94760; 94799; 99285; J0696; J1160; J1940; J2405; J2543; J3475; J7030; J7050